=== PATIENT | female | born 1970 | race Native Hawaiian/Other Pacific Islander ===

== ENCOUNTER 2017-07-31 11:34 | Day surgery (SDC) | payer OTHER ==
[2017-07-31] MEDS ORDERED: NS 1,000 ML IV (14:00)
[2017-07-31] MEDS ORDERED: LIDOCAINE 2% INJ 100 MG/5 ML SDV (FOR ANES.) As Ordered (14:48)
[2017-07-31] MEDS ORDERED: PROPOFOL 200 MG/20 ML VIAL As Ordered (14:48)
== END 2017-07-31 15:37 | disposition home or self-care (01) ==
LOC: M OPP 11:34
DX: R19.4 Change in bowel habit (principal); Z80.0 Family history of malignant neoplasm of digestive organs; K64.0 First degree hemorrhoids; R06.83 Snoring; D64.9 Anemia, unspecified; Z80.42 Family history of malignant neoplasm of prostate
CPT/HCPCS: 45378

== ENCOUNTER 2017-08-02 20:19 | Emergency (ER) | payer OTHER ==
[2017-08-02 23:32] LABS: EOS % 0.1 % (0.0-3.0); HEMATOCRIT 39.6 % (36.0-47.0); HEMOGLOBIN 13.6 g/dl (12.0-16.0); IMMATURE GRANULOCYTE % 0.3 % (0-0); LYMPH # 0.6 10^3/uL (1.5-4.5); LYMPH % 8.4 % (24.0-44.0); MEAN CORPUSCULAR HEMOGLOBIN 30.5 pg (27.0-33.0); MEAN CORPUSCULAR HGB CONC 34.3 g/dl (32.0-36.5); MEAN CORPUSCULAR VOLUME 88.8 fl (80.0-96.0); MONO # 0.4 10^3/uL (0.0-0.8); NEUTROPHILS # 6.2 10^3/uL (1.8-7.7); NEUTROPHILS % 86.2 % (36.0-66.0); PLATELET COUNT, AUTOMATED 249 10^3/uL (150-450); RED BLOOD COUNT 4.46 10^6/uL (4.00-5.40); RED CELL DISTRIBUTION WIDTH 12.8 % (11.5-14.5); WHITE BLOOD COUNT 7.2 10^3/uL (4.0-10.0)
[2017-08-02 23:43] LABS: INR 0.94; PROTHROMBIN TIME 12.7 SECONDS (12.4-14.5)
[2017-08-02 23:59] LABS: ALBUMIN 3.5 GM/DL (3.2-5.2); ALKALINE PHOSPHATASE 51 U/L (45-117); ALT/SGPT 23 U/L (12-78); AMYLASE 42 U/L (25-115); ANION GAP 7 MEQ/L (8-16); AST/SGOT 18 U/L (7-37); BILIRUBIN,DIRECT 0.2 MG/DL (0.0-0.2); BILIRUBIN,TOTAL 0.6 MG/DL (0.2-1.0); BLOOD UREA NITROGEN 10 MG/DL (7-18); CALCIUM LEVEL 8.1 MG/DL (8.5-10.1); CARBON DIOXIDE LEVEL 27 MEQ/L (21-32); CHLORIDE LEVEL 103 MEQ/L (98-107); CREATININE FOR GFR 0.64 MG/DL (0.55-1.02); GLOMERULAR FILTRATION RATE > 60.0 (>58); GLUCOSE, FASTING 113 MG/DL (70-100); LIPASE 77 U/L (73-393); POTASSIUM SERUM 3.4 MEQ/L (3.5-5.1); SODIUM LEVEL 137 MEQ/L (136-145)
[2017-08-03] MEDS: MORPHINE 4 MG/ML 1ML SYRINGE IV (00:02)
[2017-08-03] MEDS: NS 1,000 ML IV (00:02)
[2017-08-03] MEDS: PANTOPRAZOLE 40MG INJ (PROTONIX) (C9113) IV (00:02)
[2017-08-03] MEDS: ONDANSETRON 4MG/2ML VIAL (J2405) IV (00:02)
[2017-08-03] MEDS ORDERED: ISOVUE-370 76% 100ML VIAL (Q9967) As Ordered (00:36)
== END 2017-08-03 02:26 | disposition home or self-care (01) ==
LOC: M ED 20:19
DX: R10.9 Unspecified abdominal pain (principal); R11.10 Vomiting, unspecified; Z79.899 Other long term (current) drug therapy
CPT/HCPCS: C9113

== ENCOUNTER 2018-09-01 12:02 | Emergency (ER) | payer OTHER ==
[~2018-09-01] VITALS: Ht 157.5 cm; Wt 65.9 kg
[~2018-09-01 12:02] MED LIST: BIOT10008 PO; REST0.05 OP; VITA100067 PO; ZOFR4TAB14 PO
[2018-09-01] MEDS ORDERED: OLOP0.1D (12:11)
[2018-09-01] MEDS ORDERED: REFR0.5D8 (12:11)
[2018-09-01] MEDS ORDERED: ACET160S5 PO (12:11)
[2018-09-01] MEDS ORDERED: diphenhydrAMINE INJ 50MG/ML VIAL (J1200) IV ONE (12:30)
[2018-09-01] MEDS ORDERED: KETOROLAC 30 MG/ML VIAL (J1885) IV ONE (12:30)
[2018-09-01] MEDS ORDERED: METOCLOPRAMIDE INJ 10MG/2ML VIAL (J2765) IV ONE (12:30)
[2018-09-01 13:07] LABS: BASO % 0.6 % (0.0-1.0); EOS # 0.1 10^3/uL (0.0-0.50); HEMATOCRIT 45.8 % (36.0-47.0); HEMOGLOBIN 15.1 g/dl (12.0-15.5); LYMPH # 1.8 10^3/uL (1.5-4.5); LYMPH % 36.1 % (24.0-44.0); MEAN CORPUSCULAR HEMOGLOBIN 30.1 pg (27.0-33.0); MEAN CORPUSCULAR VOLUME 91.2 fl (80.0-96.0); MONO # 0.2 10^3/uL (0.0-0.8); MONO % 4.7 % (0.0-5.0); NEUTROPHILS # 2.8 10^3/uL (1.8-7.7); NEUTROPHILS % 56.4 % (36.0-66.0); PLATELET COUNT, AUTOMATED 283 10^3/uL (150-450); RED BLOOD COUNT 5.02 10^6/uL (4.00-5.40); WHITE BLOOD COUNT 4.9 10^3/uL (4.0-10.0)
[2018-09-01 13:08] LABS: URINE PREG TEST NEGATIVE (NEGATIVE)
--- NOTE | 2018-09-01 13:23 | REP ---
Clinical: Syncope . Comparison: 10/13/2006 . Findings: The ventricles, sulci, and cisterns are normal in position and appearance. Jain-white differentiation is maintained. No acute intracranial hemorrhage, mass/mass effect, pathology or trauma/injury. No evidence for acute infarction. No extra-axial fluid collection. Calvarium is intact. Paranasal sinuses and mastoid air cells are clear. Impression: Normal noncontrast head CT. No evidence for acute intracranial pathology or trauma/injury. Electronically Signed by David Stallings MD 09/01/2018 01:14 P
[2018-09-01 13:47] LABS: BLOOD UREA NITROGEN 13 MG/DL (7-18); C REACTIVE PROTEIN QUANTITATIV < 0.30 MG/DL (0.00-0.30); CALCIUM LEVEL 9.1 MG/DL (8.5-10.1); CARBON DIOXIDE LEVEL 29 MEQ/L (21-32); CHLORIDE LEVEL 103 MEQ/L (98-107); CK-MB VALUE MASS < 1.0 NG/ML (<3.6); CPK CREATINE PHOSPHOKINASE 67 U/L (26-192); CREATININE FOR GFR 0.78 MG/DL (0.55-1.30); FREE T4 0.98 NG/DL (0.76-1.46); GLOMERULAR FILTRATION RATE > 60.0 (>58); GLUCOSE, FASTING 91 MG/DL (70-100); MB/CK RELATIVE INDEX 1.49 (< OR =4); POTASSIUM SERUM 3.9 MEQ/L (3.5-5.1); SODIUM LEVEL 139 MEQ/L (136-145); TROPONIN I < 0.02 NG/ML (< 0.10)
[2018-09-01 13:51] LABS: ERYTHROCYTE SEDIMENTATION RATE 10 mm/hr (0-20)
[2018-09-01 14:10] VITALS: BP 114/74
== END 2018-09-01 14:13 | disposition home or self-care (01) ==
LOC: M ED 12:02
DX: R51 Headache (principal); R42 Dizziness and giddiness; Z79.899 Other long term (current) drug therapy
CPT/HCPCS: 70450; 80048; 81001; 81025; 82550; 82553; 83605; 83735; 84439; 84443; 84484; 84703; 85025; 85652; 86140; 96374; 96375; 99284; J1200; J1885; J2765

== ENCOUNTER 2019-07-11 20:32 | Emergency (ER) | payer OTHER ==
[~2019-07-11] VITALS: Ht 157.5 cm; Wt 65.0 kg
[~2019-07-11 20:32] MED LIST changes: +OLOP0.1D; +REFR0.5D8; +TGTSUS3 PO
[2019-07-11] MEDS ORDERED: VOLT1GEL15 (20:41)
[2019-07-11] MEDS ORDERED: GABAPENTIN 300 MG CAP PO ONE (22:30)
[2019-07-11] MEDS ORDERED: NEUR300C PO (22:31)
[2019-07-11 22:37] VITALS: BP 116/78
== END 2019-07-11 22:41 | disposition home or self-care (01) ==
LOC: M ED 20:32
DX: M79.662 Pain in left lower leg (principal); Z79.899 Other long term (current) drug therapy

== ENCOUNTER → 2020-07-04 | Outpatient (CLI) | payer SELFPAY ==
[~2020-07-04] MED LIST changes: +NEUR300C PO; +VOLT1GEL15
== END ==
LOC: M LABSMTC 13:04
PROVIDERS: ATTEND Pediatrics
DX: Z20.828 Contact with and (suspected) exposure to other viral communicable diseases (principal)

== ENCOUNTER → 2021-11-02 | Outpatient (CLI) | payer OTHER ==
[~2021-11-02] MED LIST changes: +ACET-1439 PO; -OLOP0.1D; +OLOP5DRO16; -TGTSUS3 PO
== END ==
LOC: M WHC 13:56
PROVIDERS: ATTEND Student in an Organized Health Care Education/Training Program
DX: Z12.31 Encounter for screening mammogram for malignant neoplasm of breast (principal)

== ENCOUNTER → 2022-04-24 | Outpatient (CLI) | payer OTHER ==
[2022-04-24 10:31] LABS: PLATELET COUNT, AUTOMATED 257 10^3/uL (150-450)
[2022-04-24 10:41] LABS: INR 0.83; PROTHROMBIN TIME 11.6 SECONDS (12.5-14.5)
[2022-04-24 10:42] LABS: PARTIAL THROMBOPLASTIN TIME 27.4 SECONDS (24.8-34.2)
== END ==
LOC: M LAB 09:54
PROVIDERS: ATTEND Physical Medicine & Rehabilitation
DX: M54.16 Radiculopathy, lumbar region (principal)

== ENCOUNTER → 2022-10-15 | Outpatient (CLI) | payer OTHER ==
[~2022-10-15] MED LIST changes: -OLOP5DRO16; +OLOP5DRO17; +PROHANCE 279.3MG/ML 15ML VIAL As Ordered ONE
== END ==
LOC: M RAD 16:43
PROVIDERS: ATTEND Physical Medicine & Rehabilitation
DX: M48.062 Spinal stenosis, lumbar region with neurogenic claudication (principal); M51.36 Other intervertebral disc degeneration, lumbar region; M43.16 Spondylolisthesis, lumbar region; M51.37 Other intervertebral disc degeneration, lumbosacral region
CPT/HCPCS: 72158; A9576

== ENCOUNTER → 2022-11-07 | Outpatient (CLI) | payer OTHER ==
[~2022-11-07] MED LIST changes: -PROHANCE 279.3MG/ML 15ML VIAL As Ordered ONE
== END ==
LOC: M WHC 10:19
PROVIDERS: ATTEND Student in an Organized Health Care Education/Training Program
DX: Z12.31 Encounter for screening mammogram for malignant neoplasm of breast (principal)

== ENCOUNTER → 2023-12-06 | Outpatient (CLI) | payer OTHER ==
[~2023-12-06] MED LIST changes: +COLL1CAP PO; +CYCL1DRO10
== END ==
LOC: M WHC 16:45
PROVIDERS: ATTEND Internal Medicine
DX: Z12.31 Encounter for screening mammogram for malignant neoplasm of breast (principal)

== ENCOUNTER 2025-01-25 01:24 | Inpatient (IN) | payer OTHER ==
[~2025-01-25] VITALS: Ht 157.5 cm; Wt 65.4 kg
[2025-01-25 02:06] LABS: BASO # 0.0 10^3/uL (0.0-0.2); BASO % 0.6 % (0.0-1.0); EOS # 0.1 10^3/uL (0.0-0.5); EOS % 2.0 % (0.0-3.0); LYMPH # 1.8 10^3/uL (1.5-5.0); LYMPH % 26.8 % (24.0-44.0); MONO # 0.4 10^3/uL (0.0-0.8); MONO % 6.5 % (2.0-8.0); NEUTROPHILS # 4.2 10^3/uL (1.5-8.5); NEUTROPHILS % 63.9 % (36.0-66.0); PLATELET COUNT, AUTOMATED 266 10^3/uL (150-450)
[2025-01-25 02:40] LABS: ALT/SGPT 197 U/L (7.0-40); AST/SGOT 192 U/L (<34); CALCIUM LEVEL 9.3 MG/DL (8.5-10.1); CARBON DIOXIDE LEVEL 28 MMOL/L (20-31); CHLORIDE LEVEL 102 MMOL/L (98-107); CK-MB VALUE MASS < 1.0 NG/ML (<3.6); CPK CREATINE PHOSPHOKINASE 104 U/L (34-145); CREATININE FOR GFR 0.74 MG/DL (0.55-1.30); GLOMERULAR FILTRATION RATE > 90.0 (>51); POTASSIUM SERUM 3.9 MMOL/L (3.5-5.1); SODIUM LEVEL 141 MMOL/L (136-145)
[2025-01-25 04:27] LABS: CK-MB VALUE MASS 1.0 NG/ML (<3.6)
[2025-01-25 04:31] LABS: CPK CREATINE PHOSPHOKINASE 103 U/L (34-145); MB/CK RELATIVE INDEX 0.97 (< OR =4)
[2025-01-25] MEDS ORDERED: ISOVUE-370 76% 100 ML VIAL As Ordered ONE (05:13)
[2025-01-25] MEDS: ONDANSETRON 4MG 2ML VIAL IV ONE (05:16)
[2025-01-25] MEDS: KETOROLAC 30 MG/ML 1 ML VIAL IV ONE (05:16)
[2025-01-25] MEDS: NS (Normal Saline) 0.9% 1,000 ML IV ONE (05:16)
[2025-01-25] MEDS ORDERED: MORPHINE 2 MG/ML 1 ML VIAL IV PRN (06:50)
[2025-01-25] MEDS ORDERED: MORPHINE 4 MG/ML 1 ML VIAL IV PRN ×2 (06:50→07:40)
[2025-01-25] MEDS: NS (Normal Saline) 0.9% 1,000 ML IV SCH (07:18)
[2025-01-25] MEDS ORDERED: ONDANSETRON 4MG 2ML VIAL IV PRN (07:40)
[2025-01-25] MEDS: LR 1,000 ML IV SCH (08:40)
[2025-01-25] MEDS ORDERED: OPTI0.5D2 OU (08:55)
[2025-01-25] MEDS ORDERED: KP F1200 PO (08:55)
[2025-01-25] MEDS ORDERED: RA B2500 PO (08:55)
[2025-01-25] MEDS ORDERED: HOME MED LIST COMPLETE! XX SCH (08:55)
[2025-01-25] MEDS ORDERED: VITA500C24 PO (08:55)
[2025-01-25] MEDS ORDERED: VITA100016 PO (08:55)
[2025-01-25] MEDS: PANTOPRAZOLE 40MG VIAL IV SCH (09:04)
[2025-01-25 09:46] VITALS: BP 133/71; TEMP 97.9; O2SAT 99
[2025-01-25 12:00] VITALS: BP 137/87; TEMP 97.7; O2SAT 100
[2025-01-25] MEDS: KETOROLAC 30 MG/ML 1 ML VIAL IV PRN (19:05)
[2025-01-25 20:21] VITALS: BP 111/66; TEMP 97.9; O2SAT 99
[2025-01-26 03:45] VITALS: BP 95/54; TEMP 98.1; O2SAT 98
[2025-01-26 06:16] LABS: BASO # 0.0 10^3/uL (0.0-0.2); BASO % 0.8 % (0.0-1.0); EOS # 0.1 10^3/uL (0.0-0.5); EOS % 2.4 % (0.0-3.0); LYMPH # 1.0 10^3/uL (1.5-5.0); LYMPH % 20.0 % (24.0-44.0); MONO # 0.3 10^3/uL (0.0-0.8); MONO % 5.1 % (2.0-8.0); NEUTROPHILS # 3.6 10^3/uL (1.5-8.5); NEUTROPHILS % 71.5 % (36.0-66.0); PLATELET COUNT, AUTOMATED 226 10^3/uL (150-450)
[2025-01-26 06:35] LABS: INR 0.91
[2025-01-26 06:48] LABS: ALT/SGPT 109 U/L (7.0-40); AST/SGOT 45 U/L (<34); CALCIUM LEVEL 8.5 MG/DL (8.5-10.1); CARBON DIOXIDE LEVEL 28 MMOL/L (20-31); CHLORIDE LEVEL 105 MMOL/L (98-107); CREATININE FOR GFR 0.65 MG/DL (0.55-1.30); GLOMERULAR FILTRATION RATE > 90.0 (>51); POTASSIUM SERUM 3.9 MMOL/L (3.5-5.1); SODIUM LEVEL 143 MMOL/L (136-145)
[2025-01-26 09:25] LABS: ESTIMATED AVERAGE GLUCOSE 117.0 MG/DL (60-110)
[2025-01-26] MEDS: LR 1,000 ML IV ONE ×2 (11:00→15:38)
[2025-01-26] MEDS: KETOROLAC 30 MG/ML 1 ML VIAL IV SCH (11:14)
[2025-01-26] MEDS: D5W/0.45% SODIUM CHLORIDE 1,000 ML IV SCH (11:15)
[2025-01-26 12:00] VITALS: BP 129/60; TEMP 97.9; O2SAT 99
[2025-01-26 15:11] LABS: CHOLESTEROL LEVEL 223.0 MG/DL (<200); CHOLESTEROL RISK RATIO 4.44 (<5); LDL CHOLESTEROL 140.4 MG/DL (<100); NON-HDL-C 172.8 MG/DL; TRIGLYCERIDES LEVEL 162.0 MG/DL (<150)
[2025-01-26] MEDS ORDERED: KETOROLAC 30 MG/ML 1 ML VIAL IV PRN (15:25)
[2025-01-26 20:19] VITALS: BP 125/70; TEMP 98.1; O2SAT 100
[2025-01-26 23:59] LABS: ALT/SGPT 116.0 U/L (7.0-40); AST/SGOT 79.0 U/L (<34); CALCIUM LEVEL 8.7 MG/DL (8.5-10.1); CARBON DIOXIDE LEVEL 30.0 MMOL/L (20-31); CHLORIDE LEVEL 103.0 MMOL/L (98-107); CREATININE FOR GFR 0.78 MG/DL (0.55-1.30); GLOMERULAR FILTRATION RATE 89.6 (>51); POTASSIUM SERUM 4.2 MMOL/L (3.5-5.1); SODIUM LEVEL 142.0 MMOL/L (136-145)
[2025-01-27 04:08] VITALS: BP 113/64; TEMP 98.1; O2SAT 97
[2025-01-27 06:07] LABS: BASO # 0.0 10^3/uL (0.0-0.2); BASO % 0.5 % (0.0-1.0); EOS # 0.1 10^3/uL (0.0-0.5); EOS % 2.1 % (0.0-3.0); LYMPH # 1.4 10^3/uL (1.5-5.0); LYMPH % 21.9 % (24.0-44.0); MONO # 0.3 10^3/uL (0.0-0.8); MONO % 5.1 % (2.0-8.0); NEUTROPHILS # 4.4 10^3/uL (1.5-8.5); NEUTROPHILS % 70.2 % (36.0-66.0); PLATELET COUNT, AUTOMATED 261 10^3/uL (150-450)
[2025-01-27 06:25] LABS: ALT/SGPT 105 U/L (7.0-40); AST/SGOT 55 U/L (<34); CALCIUM LEVEL 8.6 MG/DL (8.5-10.1); CARBON DIOXIDE LEVEL 27 MMOL/L (20-31); CHLORIDE LEVEL 105 MMOL/L (98-107); CREATININE FOR GFR 0.66 MG/DL (0.55-1.30); GLOMERULAR FILTRATION RATE > 90.0 (>51); POTASSIUM SERUM 3.9 MMOL/L (3.5-5.1); SODIUM LEVEL 144 MMOL/L (136-145)
== END 2025-01-27 09:07 | disposition home or self-care (01) | DRG 440 ==
LOC: M ED 01:24 → M ED INP 07:36 → M MSPAV 09:30
PROVIDERS: ADMIT Internal Medicine Nephrology; ATTEND General Practice
DX: K85.90 Acute pancreatitis without necrosis or infection, unspecified (principal); K76.0 Fatty (change of) liver, not elsewhere classified; E78.5 Hyperlipidemia, unspecified; E78.1 Pure hyperglyceridemia; K64.8 Other hemorrhoids; E11.9 Type 2 diabetes mellitus without complications; K57.90 Diverticulosis of intestine, part unspecified, without perforation or abscess without bleeding; E88.09 Other disorders of plasma-protein metabolism, not elsewhere classified; Z79.899 Other long term (current) drug therapy